=== PATIENT | female | born 1960 | race Caucasian/White ===

== ENCOUNTER 2020-02-01 11:54 | Outpatient (CLI) | payer OTHER | END 2020-02-01 12:02 | disposition home or self-care (01) | LOC: LAB 11:54 | PROVIDERS: ATTEND Urology | DX: K61.2 Anorectal abscess (principal) ==

== ENCOUNTER 2021-08-19 15:30 | Outpatient (CLI) | payer OTHER | END 2021-08-19 15:45 | disposition home or self-care (01) | LOC: PPH VACUNA 15:30 | PROVIDERS: ATTEND Emergency Medicine Pediatric Emergency Medicine | DX: Z23 Encounter for immunization (principal) ==